=== PATIENT | female | born 2000 | race Caucasian/White ===

== ENCOUNTER 2019-09-24 18:33 | Emergency (ER) | payer BC ==
[~2019-09-24] VITALS: Ht 180.3 cm; Wt 85.7 kg
[2019-09-24 18:42] VITALS: Ht 180.3 cm; Wt 85.7 kg
[2019-09-24 19:40] VITALS: BP 135/85
== END 2019-09-24 19:40 | disposition home or self-care (01) ==
LOC: ED 18:33
DX: K04.7 Periapical abscess without sinus (principal)